=== PATIENT | female | born 1965 | race African-American/Black ===

== ENCOUNTER 2021-10-17 15:57 | Inpatient (IN) | payer MEDICARE ==
[~2021-10-17] VITALS: Ht 167.6 cm; Wt 109.8 kg
[2021-10-17] MEDS: PIPERACILLIN/TAZOBACTAM 3.375 GM in SODIUM CHLORIDE 0.9% 50ML 50 ML IV SCH ×2 (16:55→23:32)
[2021-10-17] MEDS ORDERED: IOPAMIDOL 370 MG/ML 200 ML INFUS..BTL INJ ONE (17:05)
[2021-10-17] MEDS ORDERED: SODIUM CHLORIDE 0.9% 50ML 50 ML ONE (17:06)
[2021-10-17] MEDS ORDERED: IBUPROFEN800 MG PO (17:43)
[2021-10-17] MEDS ORDERED: VITAMIN A10000 UNI3 (17:43)
[2021-10-17] MEDS ORDERED: LEXAPRO20 MG PO (17:43)
[2021-10-17] MEDS ORDERED: PLAVIX75 MG PO (17:43)
[2021-10-17] MEDS ORDERED: VITAMIN C500 MG PO (17:43)
[2021-10-17] MEDS ORDERED: METOPROLOL SUCC25 MG PO (17:43)
[2021-10-17] MEDS ORDERED: CLARITIN-D 241 EACH PO (17:43)
[2021-10-17] MEDS ORDERED: ATORVASTATIN CA20 MG PO (17:43)
[2021-10-17] MEDS ORDERED: ALBUTEROL1.25 MG/3 NEB (17:43)
[2021-10-17] MEDS ORDERED: ERGOCALCIFEROL1 GM (17:43)
[2021-10-17] MEDS ORDERED: LOSARTAN POTAS100 MG PO (17:43)
[2021-10-17] MEDS ORDERED: ONDANSETRON ODT4 MG PO (17:43)
[2021-10-17] MEDS ORDERED: MULTI-VITAMIN1 EACH PO (17:43)
[2021-10-17] MEDS ORDERED: HYDROCODON-ACE1 EAC9 (17:43)
[2021-10-17] MEDS ORDERED: METHOCARBAMOL750 MG PO (17:43)
[2021-10-17] MEDS ORDERED: FAMOTIDINE20 MG PO (17:43)
[2021-10-17] MEDS ORDERED: FERROUS SULFAT325 MG PO (17:43)
[2021-10-17] MEDS ORDERED: TRAZODONE HCL50 MG PO (17:43)
[2021-10-17] MEDS ORDERED: FLONASE ALLERG9.9 ML INH (17:43)
[2021-10-17] MEDS ORDERED: BUPROPION HCL100 MG PO (17:43)
[2021-10-17] MEDS ORDERED: PIPERACILLIN/TAZOBACTAM 3.375 GM VIAL ONE (18:14)
[2021-10-17] MEDS ORDERED: SODIUM CHLORIDE 0.9% 100 ML ONE ×2 (18:14→21:25)
[2021-10-17] MEDS ORDERED: ONDANSETRON HCL INJ 2MG/ML 2ML 2 MG/ML VIAL ONE ×2 (18:30→19:22)
[2021-10-17] MEDS ORDERED: Morphine 4mg Syringe 4 MG/ML INJ ONE (18:30)
[2021-10-17] MEDS ORDERED: ONDANSETRON HCL INJ 2MG/ML 2ML 2 MG/ML VIAL IV STA ×2 (18:54→19:05)
[2021-10-17] MEDS ORDERED: Morphine 4mg Syringe 4 MG/ML INJ IV ONE (19:00)
[2021-10-17] MEDS ORDERED: FAMOTIDINE 20 MG/2 ML VIAL IV STA (19:02)
[2021-10-17] MEDS ORDERED: FAMOTIDINE 20 MG/2 ML VIAL IV ONE (19:22)
[2021-10-17] MEDS ORDERED: DIPHENHYDRAMINE HCL INJ 50 MG/ML VIAL IV ONE (20:45)
[2021-10-17] MEDS ORDERED: ONDANSETRON HCL INJ 2MG/ML 2ML 2 MG/ML VIAL IV PRN (20:45)
[2021-10-17] MEDS ORDERED: DIPHENHYDRAMINE HCL INJ 50 MG/ML VIAL ONE (21:14)
[2021-10-17 22:15] VITALS: BP 119/69
[2021-10-17 22:54] VITALS: BP 119/69
[2021-10-17] MEDS ORDERED: Vancomycin IV 1 GM in SODIUM CHLORIDE 0.9% 250ML 250 ML IV SCH (23:00)
[2021-10-17] MEDS: Morphine 4mg Syringe 4 MG/ML INJ IV PRN (23:32)
[2021-10-17] MEDS: SODIUM CHLORIDE 0.9% 1000ML 1,000 ML IV SCH (23:32)
[2021-10-17 23:35] VITALS: BP 119/69
[2021-10-18] VITALS (8 sets, daily range): BP systolic 103–124; BP diastolic 61–85
[2021-10-18] MEDS ORDERED: CHLORASEPTIC SPRAY 177 ML BTL MM PRN (01:00)
[2021-10-18] MEDS ORDERED: DIPHENHYDRAMINE HCL 25 MG CAP PO PRN ×2 (01:00→10:15)
[2021-10-18] MEDS ORDERED: DOCUSATE SODIUM 100 MG CAP PO PRN (01:00)
[2021-10-18] MEDS: SODIUM CHLORIDE 0.9% 1000ML 1,000 ML IV SCH (04:45)
[2021-10-18] MEDS: PIPERACILLIN/TAZOBACTAM 3.375 GM in SODIUM CHLORIDE 0.9% 50ML 50 ML IV SCH (05:09)
[2021-10-18] MEDS: Morphine 4mg Syringe 4 MG/ML INJ IV PRN (05:46)
[2021-10-18] MEDS ORDERED: Vancomycin IV 1 GM in SODIUM CHLORIDE 0.9% 250ML 250 ML IV SCH (08:00)
[2021-10-18 08:18] LABS: BASOPHILS % 0.5 % (0.0-1.0); EOSINOPHILS # (AUTO) 0.2 (0.0-0.4); EOSINOPHILS % 3.6 % (0.0-6.0); HEMATOCRIT 30.9 % (34.2-44.1); HEMOGLOBIN 9.9 g/dL (12.0-16.0); LYMPHOCYTES # (AUTO) 1.7 (1.0-3.2); LYMPHOCYTES % 30.9 % (18.0-39.1); MEAN CORPUSCULAR HEMOGLOBIN 29.7 pg (28-32); MEAN CORPUSCULAR VOLUME 92.8 fL (81-99); MONOCYTES # (AUTO) 0.5 (0.2-0.8); MONOCYTES % 8.5 % (4.4-11.3); NEUTROPHILS # (AUTO) 3.1 (2.1-6.9); PLATELET COUNT 321 x10e3/uL (140-360); RED BLOOD COUNT 3.33 x10e6/uL (3.6-5.1); RED CELL DISTRIBUTION WIDTH 12.7 % (11.7-14.4)
[2021-10-18 08:40] LABS: ALBUMIN 2.6 g/dL (3.5-5.0); ALBUMIN/GLOBULIN RATIO 0.7 (0.8-2.0); ANION GAP 10.2 mmol/L (8-16); CALCIUM 7.8 mg/dL (8.4-10.2); CREATININE, SERUM 0.84 mg/dL (0.57-1.11); POTASSIUM 3.2 mmol/L (3.5-5.1)
[2021-10-18 09:09] LABS: CHOL/HDL RATIO 2.6 (3.0-3.6)
[2021-10-18] MEDS ORDERED: POTASSIUM CHLORIDE 20 MEQ TAB CR PO PRN (10:15)
[2021-10-18] MEDS ORDERED: ONDANSETRON HCL INJ 2MG/ML 2ML 2 MG/ML VIAL IV PRN (10:15)
[2021-10-18] MEDS ORDERED: LIDOCAINE 4% PATCH TP PRN (10:15)
[2021-10-18] MEDS ORDERED: PHENAZOPYRIDINE HCL 100 MG TAB PO PRN (10:15)
[2021-10-18] MEDS ORDERED: SIMETHICONE 80 MG CHEW PO PRN (10:15)
[2021-10-18] MEDS ORDERED: BENZONATATE 100 MG CAP PO PRN (10:15)
[2021-10-18] MEDS ORDERED: HYDRALAZINE HCL 20 MG/ML VIAL IV PRN (10:15)
[2021-10-18] MEDS ORDERED: DEXTROSE 50% SYRINGE 50 ML IV PRN (10:15)
[2021-10-18] MEDS: ACETAMINOPHEN 325 MG TAB PO PRN ×2 (10:37→19:37)
[2021-10-18] MEDS: KETOROLAC TROMETHAMINE 30 MG/ML VIAL IV SCH ×3 (11:59→23:56)
[2021-10-18] MEDS ORDERED: CEFEPIME 1 GM in SODIUM CHLORIDE 0.9% 50ML 50 ML IV SCH (14:00)
[2021-10-18] MEDS: HYDROCODONE/APAP 5MG-325MG TAB PO PRN ×2 (14:37→20:42)
[2021-10-18] MEDS: ENOXAPARIN SOD INJ 40 MG/0.4 ML SYR SC SCH (16:54)
[2021-10-18] MEDS ORDERED: MELATONIN 5 MG TABLET PO PRN (21:00)
[2021-10-19] VITALS (8 sets, daily range): BP systolic 104–123; BP diastolic 64–88
[2021-10-19] MEDS: HYDROCODONE/APAP 5MG-325MG TAB PO PRN ×3 (04:10→21:00)
[2021-10-19 05:40] LABS: BASOPHILS # (AUTO) 0.1 (0.0-0.1); BASOPHILS % 0.9 % (0.0-1.0); EOSINOPHILS # (AUTO) 0.3 (0.0-0.4); EOSINOPHILS % 5.1 % (0.0-6.0); HEMATOCRIT 33.3 % (34.2-44.1); HEMOGLOBIN 10.2 g/dL (12.0-16.0); LYMPHOCYTES # (AUTO) 2.3 (1.0-3.2); LYMPHOCYTES % 36.1 % (18.0-39.1); MEAN CORPUSCULAR HEMOGLOBIN 29.2 pg (28-32); MEAN CORPUSCULAR HGB CONC 30.6 g/dL (31-35); MEAN CORPUSCULAR VOLUME 95.4 fL (81-99); MONOCYTES # (AUTO) 0.6 (0.2-0.8); MONOCYTES % 9.7 % (4.4-11.3); NEUTROPHILS % 47.9 % (38.7-80.0); PLATELET COUNT 309 x10e3/uL (140-360); RED BLOOD COUNT 3.49 x10e6/uL (3.6-5.1); RED CELL DISTRIBUTION WIDTH 12.9 % (11.7-14.4)
[2021-10-19] MEDS: KETOROLAC TROMETHAMINE 30 MG/ML VIAL IV SCH (06:03)
[2021-10-19 06:07] LABS: ALBUMIN 2.6 g/dL (3.5-5.0); ALBUMIN/GLOBULIN RATIO 0.7 (0.8-2.0); ANION GAP 11.5 mmol/L (8-16); CALCIUM 8.4 mg/dL (8.4-10.2); CREATININE, SERUM 0.71 mg/dL (0.57-1.11); PHOSPHORUS 2.5 MG/DL (2.3-4.7); POTASSIUM 3.5 mmol/L (3.5-5.1)
[2021-10-19 06:27] LABS: THYROID STIMULATING HORMONE 1.636 uIU/mL (0.350-4.940)
[2021-10-19] MEDS: CLOPIDOGREL BISULFATE 75 MG TAB PO SCH (08:38)
[2021-10-19] MEDS: PANTOPRAZOLE SOD 40 MG TABEC PO SCH (08:38)
[2021-10-19] MEDS: CEFTRIAXONE 2 GM in SODIUM CHLORIDE 0.9% 100 ML IV SCH (08:38)
[2021-10-19] MEDS: ESCITALOPRAM OXALATE 10 MG TAB PO SCH (08:38)
[2021-10-19] MEDS: METOPROLOL SUCCINATE 25 MG TAB XL PO SCH (08:38)
[2021-10-19] MEDS: BUPROPION HCL 100 MG TAB PO SCH (08:39)
[2021-10-19] MEDS: DOCUSATE SODIUM 100 MG CAP PO PRN (12:38)
[2021-10-19] MEDS: ALBUTEROL/IPRATROPIUM 3 ML NEB NEB PRN (13:42)
[2021-10-19] MEDS: ENOXAPARIN SOD INJ 40 MG/0.4 ML SYR SC SCH (17:42)
[2021-10-19] MEDS: ACETAMINOPHEN 325 MG TAB PO PRN (19:19)
[2021-10-19] MEDS: ATORVASTATIN 20 MG TAB PO SCH (20:57)
[2021-10-19] MEDS: TRAZODONE HCL 50 MG TAB PO SCH (20:57)
[2021-10-20] VITALS (8 sets, daily range): BP systolic 100–118; BP diastolic 62–69
[2021-10-20 05:12] LABS: BASOPHILS % 0.6 % (0.0-1.0); EOSINOPHILS # (AUTO) 0.3 (0.0-0.4); EOSINOPHILS % 3.9 % (0.0-6.0); HEMATOCRIT 30.7 % (34.2-44.1); HEMOGLOBIN 9.8 g/dL (12.0-16.0); LYMPHOCYTES # (AUTO) 1.8 (1.0-3.2); LYMPHOCYTES % 26.9 % (18.0-39.1); MEAN CORPUSCULAR HEMOGLOBIN 29.6 pg (28-32); MEAN CORPUSCULAR HGB CONC 31.9 g/dL (31-35); MEAN CORPUSCULAR VOLUME 92.7 fL (81-99); MONOCYTES # (AUTO) 0.6 (0.2-0.8); MONOCYTES % 8.7 % (4.4-11.3); NEUTROPHILS # (AUTO) 3.9 (2.1-6.9); NEUTROPHILS % 59.3 % (38.7-80.0); PLATELET COUNT 294 x10e3/uL (140-360); RED BLOOD COUNT 3.31 x10e6/uL (3.6-5.1); RED CELL DISTRIBUTION WIDTH 12.5 % (11.7-14.4)
[2021-10-20] MEDS: KETOROLAC TROMETHAMINE 30 MG/ML VIAL IV SCH ×3 (05:22→21:24)
[2021-10-20 05:33] LABS: ALBUMIN 2.4 g/dL (3.5-5.0); ALBUMIN/GLOBULIN RATIO 0.6 (0.8-2.0); ANION GAP 13.3 mmol/L (8-16); CALCIUM 7.9 mg/dL (8.4-10.2); CREATININE, SERUM 0.73 mg/dL (0.57-1.11); POTASSIUM 3.3 mmol/L (3.5-5.1)
[2021-10-20] MEDS: BUPROPION HCL 100 MG TAB PO SCH (08:05)
[2021-10-20] MEDS: CEFTRIAXONE 2 GM in SODIUM CHLORIDE 0.9% 100 ML IV SCH (08:05)
[2021-10-20] MEDS: ESCITALOPRAM OXALATE 10 MG TAB PO SCH (08:05)
[2021-10-20] MEDS: PANTOPRAZOLE SOD 40 MG TABEC PO SCH (08:05)
[2021-10-20] MEDS: HYDROCODONE/APAP 5MG-325MG TAB PO PRN ×3 (08:05→21:24)
[2021-10-20] MEDS: METOPROLOL SUCCINATE 25 MG TAB XL PO SCH (08:05)
[2021-10-20] MEDS: CLOPIDOGREL BISULFATE 75 MG TAB PO SCH (08:05)
[2021-10-20] MEDS ORDERED: ONDANSETRON HCL 4 MG ORAL DISINTEGRATING TAB PO PRN (10:15)
[2021-10-20] MEDS: ENOXAPARIN SOD INJ 40 MG/0.4 ML SYR SC SCH (16:21)
[2021-10-20] MEDS: DOCUSATE SODIUM 100 MG CAP PO PRN (21:24)
[2021-10-20] MEDS: TRAZODONE HCL 50 MG TAB PO SCH (21:24)
[2021-10-20] MEDS: ATORVASTATIN 20 MG TAB PO SCH (21:24)
[2021-10-21] VITALS (7 sets, daily range): BP systolic 100–128; BP diastolic 58–80
[2021-10-21 06:01] LABS: BASOPHILS # (AUTO) 0.1 (0.0-0.1); BASOPHILS % 0.9 % (0.0-1.0); EOSINOPHILS # (AUTO) 0.4 (0.0-0.4); EOSINOPHILS % 5.1 % (0.0-6.0); HEMATOCRIT 30.3 % (34.2-44.1); HEMOGLOBIN 9.3 g/dL (12.0-16.0); MEAN CORPUSCULAR HEMOGLOBIN 29.4 pg (28-32); MEAN CORPUSCULAR HGB CONC 30.7 g/dL (31-35); MEAN CORPUSCULAR VOLUME 95.9 fL (81-99); MONOCYTES # (AUTO) 0.7 (0.2-0.8); MONOCYTES % 10.2 % (4.4-11.3); NEUTROPHILS # (AUTO) 3.7 (2.1-6.9); NEUTROPHILS % 54.1 % (38.7-80.0); PLATELET COUNT 297 x10e3/uL (140-360); RED BLOOD COUNT 3.16 x10e6/uL (3.6-5.1); RED CELL DISTRIBUTION WIDTH 12.8 % (11.7-14.4)
[2021-10-21 06:19] LABS: ANION GAP 10.5 mmol/L (8-16); CALCIUM 8.1 mg/dL (8.4-10.2); CREATININE, SERUM 0.77 mg/dL (0.57-1.11); POTASSIUM 3.5 mmol/L (3.5-5.1)
[2021-10-21] MEDS: HYDROCODONE/APAP 5MG-325MG TAB PO PRN (08:02)
[2021-10-21] MEDS: CLOPIDOGREL BISULFATE 75 MG TAB PO SCH (08:02)
[2021-10-21] MEDS: PANTOPRAZOLE SOD 40 MG TABEC PO SCH (08:02)
[2021-10-21] MEDS: ESCITALOPRAM OXALATE 10 MG TAB PO SCH (08:03)
[2021-10-21] MEDS: CEFTRIAXONE 2 GM in SODIUM CHLORIDE 0.9% 100 ML IV SCH (08:03)
[2021-10-21] MEDS: BUPROPION HCL 100 MG TAB PO SCH (08:03)
[2021-10-21] MEDS: METOPROLOL SUCCINATE 25 MG TAB XL PO SCH (08:15)
[2021-10-21] MEDS: DOCUSATE SODIUM 100 MG CAP PO PRN (13:09)
[2021-10-21] MEDS: KETOROLAC TROMETHAMINE 30 MG/ML VIAL IV SCH (15:39)
[2021-10-21] MEDS: ENOXAPARIN SOD INJ 40 MG/0.4 ML SYR SC SCH (16:25)
[2021-10-21] MEDS: ATORVASTATIN 20 MG TAB PO SCH (20:50)
[2021-10-21] MEDS: TRAZODONE HCL 50 MG TAB PO SCH (20:50)
[2021-10-22] VITALS: BP 99/52
[2021-10-22] MEDS: KETOROLAC TROMETHAMINE 30 MG/ML VIAL IV SCH ×2 (00:01→08:49)
[2021-10-22 04:00] VITALS: BP 109/58
[2021-10-22 08:43] VITALS: BP 109/58
[2021-10-22] MEDS: PANTOPRAZOLE SOD 40 MG TABEC PO SCH (08:48)
[2021-10-22] MEDS: METOPROLOL SUCCINATE 25 MG TAB XL PO SCH (08:49)
[2021-10-22] MEDS: CEFTRIAXONE 2 GM in SODIUM CHLORIDE 0.9% 100 ML IV SCH (08:49)
[2021-10-22] MEDS: BUPROPION HCL 100 MG TAB PO SCH (08:49)
[2021-10-22] MEDS: CLOPIDOGREL BISULFATE 75 MG TAB PO SCH (08:49)
[2021-10-22] MEDS: ESCITALOPRAM OXALATE 10 MG TAB PO SCH (08:49)
[2021-10-22] MEDS: HYDROCODONE/APAP 5MG-325MG TAB PO PRN ×3 (09:43→21:58)
[2021-10-22] MEDS ORDERED: SODIUM CHLORIDE 0.9% 50ML 50 ML ONE (09:56)
[2021-10-22] MEDS ORDERED: ALTEPLASE RECOMBINANT 2 MG/2 ML VIAL IV ONE (13:00)
[2021-10-22] MEDS: ENOXAPARIN SOD INJ 40 MG/0.4 ML SYR SC SCH (17:29)
[2021-10-22 20:00] VITALS: BP 118/69
[2021-10-22] MEDS: TRAZODONE HCL 50 MG TAB PO SCH (21:50)
[2021-10-22] MEDS: ATORVASTATIN 20 MG TAB PO SCH (21:50)
[2021-10-23] VITALS (7 sets, daily range): BP systolic 92–110; BP diastolic 51–68
[2021-10-23] MEDS: PANTOPRAZOLE SOD 40 MG TABEC PO SCH (08:30)
[2021-10-23] MEDS: CLOPIDOGREL BISULFATE 75 MG TAB PO SCH (08:31)
[2021-10-23] MEDS: ESCITALOPRAM OXALATE 10 MG TAB PO SCH (08:31)
[2021-10-23] MEDS: CEFTRIAXONE 2 GM in SODIUM CHLORIDE 0.9% 100 ML IV SCH (08:31)
[2021-10-23] MEDS: BUPROPION HCL 100 MG TAB PO SCH (08:31)
[2021-10-23] MEDS: HYDROCODONE/APAP 5MG-325MG TAB PO PRN ×3 (08:32→22:00)
[2021-10-23] MEDS: METOPROLOL SUCCINATE 25 MG TAB XL PO SCH (12:45)
[2021-10-23] MEDS ORDERED: KETOROLAC TROMETHAMINE 30 MG/ML VIAL IM ONE (13:30)
[2021-10-23] MEDS: ENOXAPARIN SOD INJ 40 MG/0.4 ML SYR SC SCH (16:30)
[2021-10-23] MEDS: ALBUTEROL/IPRATROPIUM 3 ML NEB NEB PRN (20:44)
[2021-10-23] MEDS: TRAZODONE HCL 50 MG TAB PO SCH (21:06)
[2021-10-23] MEDS: ATORVASTATIN 20 MG TAB PO SCH (21:06)
[2021-10-24] VITALS: BP 93/66
[2021-10-24 04:40] VITALS: BP 106/65
[2021-10-24] MEDS: HYDROCODONE/APAP 5MG-325MG TAB PO PRN (04:43)
[2021-10-24 08:01] VITALS: BP 107/66
[2021-10-24 08:08] VITALS: BP 107/66
[2021-10-24] MEDS: PANTOPRAZOLE SOD 40 MG TABEC PO SCH (09:38)
[2021-10-24] MEDS: CLOPIDOGREL BISULFATE 75 MG TAB PO SCH (09:38)
[2021-10-24] MEDS: CEFTRIAXONE 2 GM in SODIUM CHLORIDE 0.9% 100 ML IV SCH (09:38)
[2021-10-24] MEDS: BUPROPION HCL 100 MG TAB PO SCH (09:38)
[2021-10-24] MEDS: ESCITALOPRAM OXALATE 10 MG TAB PO SCH (09:38)
[2021-10-24] MEDS: METOPROLOL SUCCINATE 25 MG TAB XL PO SCH (09:38)
[2021-10-24 11:33] VITALS: BP 108/71
[2021-10-24 11:34] VITALS: BP 108/71
== END 2021-10-24 12:30 | disposition home or self-care (01) | DRG 863 ==
LOC: FSED 16:02 → ERHOLD 20:43 → INTOOBSV 20:43 → MED/SURG3 22:17 → OBSVTOIN 10-19 14:38
PROVIDERS: ADMIT Internal Medicine; ATTEND Internal Medicine
PROC: 02HV33Z Insertion of Infusion Device into Superior Vena Cava, Percutaneous Approach (ICD-10-PCS; principal; 2021-10-18)
DX: T81.49XA Infection following a procedure, other surgical site, initial encounter (principal); L03.113 Cellulitis of right upper limb; E66.01 Morbid (severe) obesity due to excess calories; I10 Essential (primary) hypertension; E11.42 Type 2 diabetes mellitus with diabetic polyneuropathy; E78.5 Hyperlipidemia, unspecified; G47.30 Sleep apnea, unspecified; Z98.84 Bariatric surgery status; Z88.8 Allergy status to other drugs, medicaments and biological substances; Z68.39 Body mass index [BMI] 39.0-39.9, adult; Z20.822 Contact with and (suspected) exposure to COVID-19
CPT/HCPCS: 36415; 36569; 71045; 76882; 80048; 80053; 80061; 82948; 83036; 83735; 84100; 84443; 85025; 93005; 93971; 94640; 94799; 96374; 96375; 97139; 99284; G0378; J0692; J0696; J1200; J1650; J1885; J2270; J2405; J2543; J2997; J3370; J7030; J7050; Q9967; U0002